=== PATIENT | female | born 1960 | race Caucasian/White ===

== ENCOUNTER 2019-04-04 20:07 | Emergency (ER) | payer OTHER ==
[~2019-04-04] VITALS: Ht 160 cm; Wt 93.9 kg
[~2019-04-04 20:07] MED LIST: ENALAPRIL MALEA10 MG NGT
[2019-04-04] MEDS ORDERED: GLIPIZIDE ER5 MG PO (20:55)
[2019-04-04] MEDS ORDERED: LISINOPRIL10 MG PO (20:55)
[2019-04-04] MEDS ORDERED: METFORMIN HCL850 MG PO (20:56)
== END 2019-04-05 00:30 | disposition home or self-care (01) ==
LOC: ER 20:07
DX: K29.70 Gastritis, unspecified, without bleeding (principal); M62.830 Muscle spasm of back

== ENCOUNTER 2022-03-28 10:06 | Emergency (ER) | payer OTHER ==
[~2022-03-28] VITALS: Ht 160 cm; Wt 87.1 kg
[~2022-03-28 10:06] MED LIST changes: +GLIPIZIDE ER5 MG PO; +LISINOPRIL10 MG PO; +METFORMIN HCL850 MG PO
[2022-03-28] MEDS ORDERED: LIPITOR40 M1 PO (10:14)
[2022-03-28] MEDS ORDERED: SYNTHROID75 MCG PO (10:14)
[2022-03-28] MEDS ORDERED: TYLENOL ARTHRI650 MG PO (13:03)
== END 2022-03-28 13:23 | disposition home or self-care (01) ==
LOC: ER 10:06
DX: M25.561 Pain in right knee (principal); M17.11 Unilateral primary osteoarthritis, right knee; I10 Essential (primary) hypertension; E11.9 Type 2 diabetes mellitus without complications; Z79.84 Long term (current) use of oral hypoglycemic drugs